=== PATIENT | male | born 1970 | race Caucasian/White ===

== ENCOUNTER 2021-07-10 14:27 | Emergency (ER) | payer OTHER ==
[~2021-07-10] VITALS: Ht 175.3 cm; Wt 74.8 kg
[2021-07-10 15:07] LABS: BASOPHILS ABSOLUTE AUTO 0.02 K/mm3 (0.00-0.23); BASOPHILS PERCENT AUTO 0 % (0-2); EOSINOPHILS PERCENT AUTO 0 % (0-6); Hematocrit 47.4 % (37.0-53.0); Hemoglobin 16.6 g/dL (13.5-17.5); IMMATURE GRAN ABSOLUTE AUTO 0.05 K/mm3 (0.00-0.10); IMMATURE GRAN PERCENT AUTO 0 % (0-1); LYMPHOCYTES ABSOLUTE AUTO 0.86 K/mm3 (0.84-5.20); LYMPHOCYTES PERCENT AUTO 7 % (21-46); MONOCYTES ABSOLUTE AUTO 1.09 K/mm3 (0.16-1.47); MONOCYTES PERCENT AUTO 9 % (4-13); Mean Corpuscular HGB 36.2 pg (26.0-34.0); Mean Corpuscular Volume 103 fL (80-100); NEUTROPHILS ABSOLUTE AUTO 9.99 K/mm3 (1.96-9.15); NEUTROPHILS PERCENT AUTO 83 % (41-73); Platelet Count 196 K/mm3 (150-400); RDW Coefficient Variation 13.2 % (11.7-14.2); RDW Standard Deviation 50.4 fL (35.1-46.3); Red Blood Cell Count 4.59 M/mm3 (4.30-5.90); White Blood Cell Count 12.01 K/mm3 (4.00-11.30)
[2021-07-10 15:37] LABS: Albumin, Blood 4.1 g/dL (3.4-5.0); Albumin/Globulin Ratio 0.9 (0.8-1.8); Bilirubin, Total 2.8 mg/dL (0.1-1.0); Bun/Creatinine Ratio 20.8 (12.0-20.0); Calcium, Blood 13.1 mg/dL (8.5-10.1); Creatinine, Blood 1.3 mg/dL (0.60-1.20); Globulin, Blood 4.4 g/dL (2.2-4.0); Potassium, Blood 3.7 mmol/L (3.5-5.5); Total Protein, Blood 8.5 g/dL (6.4-8.2)
[2021-07-10 16:40] LABS: Magnesium, Blood 1.9 mg/dL (1.6-2.4); Phosphorus, Blood 3.7 mg/dL (2.5-4.9)
[2021-07-10 17:11] LABS: Source, Urine Clean Catch
[2021-07-10 17:22] LABS: Appearance, Urine Cloudy (Clear); Blood, Urine 2+ (Neg); Color, Urine Amber (P-Yellow); Glucose Qualitative, Urine Neg (Neg); Ketones, Urine 3+ (Neg); Leukocyte Esterase, Urine 1+ (Neg); Nitrite, Urine Pos (Neg); Protein, Urine 3+ (Neg); Specific Gravity, Urine 1.025 (1.003-1.022); Urobilinogen, Urine 2+ (Normal)
[2021-07-10 17:38] LABS: Bilirubin, Urine 2+ (Neg)
[2021-07-10 17:43] LABS: Bacteria Many /hpf; Mucus Mod (0-Heavy); Squamous Epithelial Cells Few /hpf (Few)
[2021-07-10 17:44] LABS: Hyaline Casts 25-50 /lpf (0-2)
[2021-07-10] MEDS ORDERED: ASPI325EC PO (18:53)
[2021-07-10] MEDS ORDERED: ONDA4ODT MM (20:09)
[2021-07-10] MEDS ORDERED: CEFP200 PO (20:09)
[2021-07-10 20:53] LABS: Anion Gap 11 mmol/L (6-16); Blood Urea Nitrogen 26 mg/dL (8-24); Bun/Creatinine Ratio 26.2 (12.0-20.0); CO2, Blood 28 mmol/L (21-32); Chloride, Blood 98 mmol/L (98-108); Creatinine, Blood 0.99 mg/dL (0.60-1.20); Glomerular Filtration Rate >60 (60-); Glucose, Blood 116 mg/dL (70-99); Potassium, Blood 3.8 mmol/L (3.5-5.5); Sodium, Blood 137 mmol/L (136-145)
[2021-07-10 20:54] LABS: Calcium, Blood 10.9 mg/dL (8.5-10.1)
== END 2021-07-10 22:07 | disposition home or self-care (01) ==
LOC: ER 14:27
PROVIDERS: Physician Assistant
DX: E83.52 Hypercalcemia (principal); N39.0 Urinary tract infection, site not specified; E86.0 Dehydration; Z87.891 Personal history of nicotine dependence; Z20.822 Contact with and (suspected) exposure to COVID-19
CPT/HCPCS: 51798; 71046; 74177; 80048; 80053; 81001; 82330; 83605; 83690; 83735; 83970; 84100; 85025; 87086; 93005; 93010; 96365; 99284-25; A9270; J0696; J2405; J7030; Q9967

== ENCOUNTER → 2021-12-25 | Outpatient (CLI) | payer OTHER ==
[~2021-12-25] MED LIST: ASPI325EC PO; CEFP200 PO; ONDA4ODT MM
== END ==
LOC: LAB SHORT 07:21
DX: R21 Rash and other nonspecific skin eruption (principal)
CPT/HCPCS: 88312

== ENCOUNTER 2022-03-26 15:10 | Inpatient (IN) | payer OTHER ==
[~2022-03-26] VITALS: Ht 175.3 cm; Wt 75.7 kg
[2022-03-26] MEDS ORDERED: Prednisone10 MG PO (16:03)
[2022-03-26 16:58] LABS: BASOPHILS ABSOLUTE AUTO 0.02 K/mm3 (0.00-0.23); BASOPHILS PERCENT AUTO 0 % (0-2); EOSINOPHILS PERCENT AUTO 0 % (0-6); Hematocrit 33.8 % (37.0-53.0); Hemoglobin 12.5 g/dL (13.5-17.5); IMMATURE GRAN PERCENT AUTO 1 % (0-1); LYMPHOCYTES ABSOLUTE AUTO 1.33 K/mm3 (0.84-5.20); LYMPHOCYTES PERCENT AUTO 10 % (21-46); MONOCYTES ABSOLUTE AUTO 1.77 K/mm3 (0.16-1.47); MONOCYTES PERCENT AUTO 13 % (4-13); Mean Corpuscular Volume 95 fL (80-100); NEUTROPHILS PERCENT AUTO 76 % (41-73); NRBC ABSOLUTE 0.16 K/mm3 (0.00-0.02); NRBC Auto 1.2 /100 WBC (0.0-0.2); Platelet Count 252 K/mm3 (150-400); RDW Coefficient Variation 14.9 % (11.7-14.2); RDW Standard Deviation 50.6 fL (35.1-46.3); Red Blood Cell Count 3.57 M/mm3 (4.30-5.90); White Blood Cell Count 13.22 K/mm3 (4.00-11.30)
[2022-03-26 17:39] LABS: Albumin, Blood 3.1 g/dL (3.4-5.0); Albumin/Globulin Ratio 0.9 (0.8-1.8); Bilirubin, Total 2.6 mg/dL (0.1-1.0); Bun/Creatinine Ratio 12.7 (12.0-20.0); Creatinine, Blood 3.55 mg/dL (0.60-1.20); Globulin, Blood 3.4 g/dL (2.2-4.0); Total Protein, Blood 6.5 g/dL (6.4-8.2)
[2022-03-26 19:03] LABS: PCO2 Arterial 42.1 mmHg (35-45); PO2 Arterial 50.6 mmHg (80-100)
[2022-03-26 19:04] LABS: pH Blood Arterial 7.66 (7.35-7.45)
[2022-03-27 00:03] LABS: Bun/Creatinine Ratio 18.2 (12.0-20.0); Calcium, Blood 7.1 mg/dL (8.5-10.1); Creatinine, Blood 2.47 mg/dL (0.60-1.20); Potassium, Blood 2.1 mmol/L (3.5-5.5)
[2022-03-27 03:06] LABS: Source, Urine Clean Catch
[2022-03-27 03:37] LABS: Blood, Urine 2+ (Neg); Glucose Qualitative, Urine Neg (Neg); Ketones, Urine 1+ (Neg); Leukocyte Esterase, Urine 1+ (Neg); Nitrite, Urine Neg (Neg); Protein, Urine 2+ (Neg); Specific Gravity, Urine 1.015 (1.003-1.022); Urobilinogen, Urine 2+ (Normal)
[2022-03-27 04:00] LABS: Appearance, Urine Hazy (Clear); Bilirubin, Urine 1+ (Neg); Color, Urine Amber (P-Yellow)
[2022-03-27 04:01] LABS: Bacteria Not Seen /hpf; Squamous Epithelial Cells Mod /hpf (Few); White Blood Cells, Urine 0-2 /hpf (0-5)
[2022-03-27 04:46] LABS: Albumin, Blood 2.6 g/dL (3.4-5.0); Bun/Creatinine Ratio 20.8 (12.0-20.0); Calcium, Blood 6.9 mg/dL (8.5-10.1); Creatinine, Blood 1.97 mg/dL (0.60-1.20); Globulin, Blood 2.5 g/dL (2.2-4.0); Potassium, Blood 2.6 mmol/L (3.5-5.5); Total Protein, Blood 5.1 g/dL (6.4-8.2)
--- NOTE | 2022-03-27 06:22 | NUR ---
SHIFT SUMMARY Assumed care of patient at 2300. A/Ox2, self and situation. Patient unable to give me medical history at this time d/t confusion and drowsiness. Initial CIWA on the unit was 14, medicated per emar. CIWA's have ranged from 8-14. Maintains over 95% on RA-2L while sleeping. Patient snores, doesn't report sleep apnea but does desat into 70's while sleeping. SBP 80-90's, MAP remains in 70's. NS running at 200ml/hr. ST on tele low 100's, Prolonged QTc. Critical potassium this evening, hospitalist contacted and orders received. David inserted d/t retention and bladder scan more than 200mL, draining dark red/brown urine. Attends in place. Patient states last drink was earlier in the day at lunch time, although report given from significant other was that it was 4 days ago. L hip bruise noted, picture in chart. Patient unable to tell how it occurred. Will report to dayshift RN.
[2022-03-27 06:32] LABS: BASOPHILS ABSOLUTE AUTO 0.01 K/mm3 (0.00-0.23); BASOPHILS PERCENT AUTO 0 % (0-2); EOSINOPHILS PERCENT AUTO 0 % (0-6); Hematocrit 29.9 % (37.0-53.0); Hemoglobin 10.7 g/dL (13.5-17.5); IMMATURE GRAN ABSOLUTE AUTO 0.03 K/mm3 (0.00-0.10); IMMATURE GRAN PERCENT AUTO 0 % (0-1); LYMPHOCYTES ABSOLUTE AUTO 0.62 K/mm3 (0.84-5.20); LYMPHOCYTES PERCENT AUTO 7 % (21-46); MONOCYTES ABSOLUTE AUTO 0.73 K/mm3 (0.16-1.47); MONOCYTES PERCENT AUTO 8 % (4-13); Mean Corpuscular HGB 34.7 pg (26.0-34.0); Mean Corpuscular HGB Conc 35.8 g/dL (31.5-36.5); Mean Corpuscular Volume 97 fL (80-100); NEUTROPHILS ABSOLUTE AUTO 7.56 K/mm3 (1.96-9.15); NEUTROPHILS PERCENT AUTO 85 % (41-73); NRBC ABSOLUTE 0.04 K/mm3 (0.00-0.02); NRBC Auto 0.4 /100 WBC (0.0-0.2); Platelet Count 185 K/mm3 (150-400); RDW Coefficient Variation 14.7 % (11.7-14.2); RDW Standard Deviation 49.8 fL (35.1-46.3); Red Blood Cell Count 3.08 M/mm3 (4.30-5.90); White Blood Cell Count 8.95 K/mm3 (4.00-11.30)
[2022-03-27 08:40] LABS: Base Excess Venous 17.6 mmol/L; Bicarbonate Venous 40.2 mmol/L (24.0-30.0); PCO2 Venous 40.6 mmHg (38-42); PO2 Venous 172 mmHg (38-42); pH Blood Venous 7.59 (7.34-7.37)
[2022-03-27 09:01] LABS: Albumin, Blood 2.4 g/dL (3.4-5.0); Albumin/Globulin Ratio 0.9 (0.8-1.8); Bilirubin, Indirect 0.9 mg/dL (0.1-0.7); Bilirubin, Total 1.9 mg/dL (0.1-1.0); Bun/Creatinine Ratio 24.5 (12.0-20.0); Calcium, Blood 6.7 mg/dL (8.5-10.1); Creatinine, Blood 1.39 mg/dL (0.60-1.20); Globulin, Blood 2.7 g/dL (2.2-4.0); Potassium, Blood 2.7 mmol/L (3.5-5.5); Total Protein, Blood 5.1 g/dL (6.4-8.2)
[2022-03-27 17:17] LABS: Bun/Creatinine Ratio 31.7 (12.0-20.0); Creatinine, Blood 1.04 mg/dL (0.60-1.20)
--- NOTE | 2022-03-27 18:21 | NUR ---
ASSUMED CARE OF PT AT 0700 TODAY. NO ACTUE EVENTS T/O THE SHIFT. LABS APPEAR TO BE SLOWLY IMPROVING AND PT HAS BECOME MORE ALERT AND ORIENTED OVER THE COURSE OF THE DAY. AT BEDSIDE TO VISIT. PT HAS HAD NO COMPLAINTS, NO NAUSEA OR VOMITING. ADEQUATE URINE OUTPUT, TEA COLORED URINE NOTED TO MOSS DRAINAGE BAG. VSS. NO ATIVIAN/LIBRIUM REQUIRED ON MY SHIFT. PT USES CALL LIGHT APPROPRIATELY, CALL LIGHT IN REACH, WILL CONTINUE TO MONITOR AND GIVE REPORT TO NOC SHIFT RN.
[2022-03-27 19:44] LABS: Bun/Creatinine Ratio 34.2 (12.0-20.0); Calcium, Blood 7.9 mg/dL (8.5-10.1); Creatinine, Blood 0.85 mg/dL (0.60-1.20); Potassium, Blood 2.8 mmol/L (3.5-5.5)
[2022-03-27 21:21] LABS: Base Excess Venous 14.4 mmol/L; Bicarbonate Venous 36.8 mmol/L (24.0-30.0)
[2022-03-28 04:09] LABS: BASOPHILS PERCENT AUTO 0 % (0-2); EOSINOPHILS PERCENT AUTO 0 % (0-6); Hematocrit 27.4 % (37.0-53.0); Hemoglobin 9.7 g/dL (13.5-17.5); IMMATURE GRAN ABSOLUTE AUTO 0.07 K/mm3 (0.00-0.10); IMMATURE GRAN PERCENT AUTO 1 % (0-1); LYMPHOCYTES ABSOLUTE AUTO 1.13 K/mm3 (0.84-5.20); LYMPHOCYTES PERCENT AUTO 14 % (21-46); MONOCYTES ABSOLUTE AUTO 0.71 K/mm3 (0.16-1.47); MONOCYTES PERCENT AUTO 9 % (4-13); Mean Corpuscular HGB Conc 35.4 g/dL (31.5-36.5); Mean Corpuscular Volume 99 fL (80-100); NEUTROPHILS ABSOLUTE AUTO 5.95 K/mm3 (1.96-9.15); NEUTROPHILS PERCENT AUTO 76 % (41-73); NRBC ABSOLUTE 0.05 K/mm3 (0.00-0.02); NRBC Auto 0.6 /100 WBC (0.0-0.2); Platelet Count 179 K/mm3 (150-400); RDW Coefficient Variation 14.4 % (11.7-14.2); RDW Standard Deviation 51.1 fL (35.1-46.3); Red Blood Cell Count 2.77 M/mm3 (4.30-5.90); White Blood Cell Count 7.86 K/mm3 (4.00-11.30)
[2022-03-28 04:39] LABS: Albumin, Blood 2.4 g/dL (3.4-5.0); Albumin/Globulin Ratio 0.9 (0.8-1.8); Bilirubin, Total 2.2 mg/dL (0.1-1.0); Bun/Creatinine Ratio 28.7 (12.0-20.0); Calcium, Blood 7.3 mg/dL (8.5-10.1); Creatinine, Blood 0.7 mg/dL (0.60-1.20); Globulin, Blood 2.6 g/dL (2.2-4.0); Potassium, Blood 2.7 mmol/L (3.5-5.5)
--- NOTE | 2022-03-28 06:31 | NUR ---
SHIFT SUMMARY A/Ox4, with periods of confusion especially after waking up from sleeping. CIWA's ranging from 4-5. Maintains over 95% on RA-2L while sleeping. Patient snores, doesn't report sleep apnea but does desat into 70's while sleeping.VSS. NS running at 200ml/hr. SR on tele low 100's, QTc improved. Potassium IV orders this evening. David draining flor urine. No acute changes. Will report to daystasha DANIEL.
[2022-03-28 15:20] LABS: Albumin, Blood 2.4 g/dL (3.4-5.0); Albumin/Globulin Ratio 0.9 (0.8-1.8); Bilirubin, Total 1.6 mg/dL (0.1-1.0); Bun/Creatinine Ratio 23.9 (12.0-20.0); Calcium, Blood 7.3 mg/dL (8.5-10.1); Creatinine, Blood 0.59 mg/dL (0.60-1.20); Globulin, Blood 2.7 g/dL (2.2-4.0); Potassium, Blood 3.3 mmol/L (3.5-5.5); Total Protein, Blood 5.1 g/dL (6.4-8.2)
--- NOTE | 2022-03-28 15:21 | NUR ---
Spiritual care visit conducted. Pt is admits immediately that he is confused. He repeats himself often and believes that I am a doctor even with repated reminders of my role. Pt talks about the frustration he feels about not being able to do anything because of mobility issues and mental fog. He tells me about his positive family support and [employer] satinder. Pt's spouse, Rhonda, enter's rm and explains about the alcohol issues that are at the heart of his medical conditions. Pt, then, is more honest about his struggle but maintains that he has quit before and he can do it again. I reinforce helpful attitudes and practices, and provide therapeutic listening, gentle preparole counseling aide and prayer. Pt responds well and shows signs of a stronger resolve. I will continue to remain availble to patient and family.
--- NOTE | 2022-03-28 18:36 | NUR ---
NO ACUTE EVENTS T/O THE SHIFT. POTASSIUM REPLACED PER MD SOSA AND LABS DRAWN. PT WORKED WITH PT/OT AND WAS ABLE TO SIT IN A CHAIR AT BEDSIDE FOR A WHILE TODAY. PT'S AT BEDSIDE AND UPDATED. PT MEDICATED WITH LIBRIUM X 1 FOR TREMORS AND CONFUSION, APPEARED TO BE EFFECTIVE, PT RESTING COMFORTABLY AFTER DOSE. NO FURTHER NEEDS IDENTIFIED AT THIS TIME, CALL LIGHT IN REACH, WILL CONTINUE TO MONITOR AND GIVE REPORT TO NOC SHIFT RN.
[2022-03-29 03:50] LABS: BASOPHILS ABSOLUTE AUTO 0.02 K/mm3 (0.00-0.23); BASOPHILS PERCENT AUTO 0 % (0-2); EOSINOPHILS ABSOLUTE AUTO 0.11 K/mm3 (0.00-0.68); EOSINOPHILS PERCENT AUTO 1 % (0-6); Hemoglobin 9.9 g/dL (13.5-17.5); IMMATURE GRAN ABSOLUTE AUTO 0.11 K/mm3 (0.00-0.10); IMMATURE GRAN PERCENT AUTO 1 % (0-1); LYMPHOCYTES ABSOLUTE AUTO 1.29 K/mm3 (0.84-5.20); LYMPHOCYTES PERCENT AUTO 17 % (21-46); MONOCYTES ABSOLUTE AUTO 0.91 K/mm3 (0.16-1.47); MONOCYTES PERCENT AUTO 12 % (4-13); Mean Corpuscular HGB 34.4 pg (26.0-34.0); Mean Corpuscular HGB Conc 34.1 g/dL (31.5-36.5); Mean Corpuscular Volume 101 fL (80-100); Mean Platelet Volume 10.9 fL (9.1-12.4); NEUTROPHILS PERCENT AUTO 68 % (41-73); NRBC ABSOLUTE 0.06 K/mm3 (0.00-0.02); NRBC Auto 0.8 /100 WBC (0.0-0.2); Platelet Count 208 K/mm3 (150-400); RDW Coefficient Variation 14.6 % (11.7-14.2); RDW Standard Deviation 52.5 fL (35.1-46.3); Red Blood Cell Count 2.88 M/mm3 (4.30-5.90); White Blood Cell Count 7.74 K/mm3 (4.00-11.30)
[2022-03-29 04:09] LABS: Albumin, Blood 2.2 g/dL (3.4-5.0); Albumin/Globulin Ratio 0.9 (0.8-1.8); Bilirubin, Total 1.4 mg/dL (0.1-1.0); Bun/Creatinine Ratio 16.1 (12.0-20.0); Calcium, Blood 7.1 mg/dL (8.5-10.1); Creatinine, Blood 0.56 mg/dL (0.60-1.20); Globulin, Blood 2.4 g/dL (2.2-4.0); Potassium, Blood 3.5 mmol/L (3.5-5.5); Total Protein, Blood 4.6 g/dL (6.4-8.2)
--- NOTE | 2022-03-29 05:48 | NUR ---
SHIFT SUMMARY ASSUMED CARE OF PT AROUND 0300. PT IS A/OX3. PT WAKE AND SATURATIONS AT 95% ON RA. PT HAD NO NEW COMPLAINTS. GRATFUL OF CARE GIVEN AT HOSPITAL. NO ACUTE CHANGES.
[2022-03-29 12:29] LABS: Bun/Creatinine Ratio 15.1 (12.0-20.0); Calcium, Blood 7.5 mg/dL (8.5-10.1); Creatinine, Blood 0.6 mg/dL (0.60-1.20); Potassium, Blood 3.8 mmol/L (3.5-5.5)
--- NOTE | 2022-03-29 13:51 | NUR ---
PT ASKED IF A DOCTOR COULD DISCUSS ACLOHOL WITHDRAWL PROGRAMS WITH THE PT. PT STATED "HE SAYS THAT HE WANTS HELP BUT DOES NOT WANT TO HEAR ANYTHING ON IT FROM ME. I THINK IT IS BECAUSE I AM HIS ." THIS RN INFORMED PT THAT RN'S CAN TALK WITH THE PT ABOUT IT, BUT PT EXPRESSED THAT THE PT WOULD LISTEN MORE EFFECTIVLEY IF IT CAME FROM A DOCTOR. THIS RN WILL FORWARD TO DOCTOR.
[2022-03-29] MEDS ORDERED: GABA300 PO (14:52)
--- NOTE | 2022-03-29 15:01 | NUR ---
UPDATE THIS RN ENTERED PT ROOM 1455. PT ASKED IF HE COULD RETURN TO HIS BED STATING "MY TAILBONE HURTS AND I WOULD LIKE TO GET BACK INTO BED." PT WAS ATTEMPTING TO SIT AT EDGE OF BED, PT BECAME WEAK AND FLOPPED ONTO EDGE OF BED. THIS RN ASKED IF PT WAS LIGHTHEADED OR DIZZY, PT RESPONDED WITH "NO MY DAMN KNEES JUST GAVE OUT." AFTER SITTING ON EDGE OF BED FOR A MOMENT, PT WAS ABLE TO USE HIS ARMS TO LIFT HIPS AND SLIDE BACK FURTHER INTO BED. PT THEN ABLE TO LIE BACK AND LIFT LEGS INTO BED WITHOUT ASSISTANCE.
--- NOTE | 2022-03-29 16:09 | NUR ---
DISCHARGE UPDATE DISCHARGE PACKET GONE OVER WITH PT AND PT AT 1555. PT BELONGINGS IN BAGS AND WITH PT FOR DISCHARGE. DISCHARGE PACKET IN BAGS WITH PT.
== END 2022-03-29 16:25 | disposition home health service (06) | DRG 896 ==
LOC: ER 15:10 → PCU 19:12 → ERHOLD 19:12 → PCU 21:08
PROVIDERS: Family Medicine; Hospitalist; Student in an Organized Health Care Education/Training Program; ADMIT Internal Medicine
PROC: HZ2ZZZZ Detoxification Services for Substance Abuse Treatment (ICD-10-PCS; principal; 2022-03-26)
DX: F10.239 Alcohol dependence with withdrawal, unspecified (principal); G93.41 Metabolic encephalopathy; E87.2 Acidosis; N17.9 Acute kidney failure, unspecified; E46 Unspecified protein-calorie malnutrition; R44.3 Hallucinations, unspecified; E87.3 Alkalosis; E87.1 Hypo-osmolality and hyponatremia; L40.50 Arthropathic psoriasis, unspecified; E87.6 Hypokalemia; E86.0 Dehydration; D64.9 Anemia, unspecified; E87.8 Other disorders of electrolyte and fluid balance, not elsewhere classified; R73.9 Hyperglycemia, unspecified; Z68.25 Body mass index [BMI] 25.0-25.9, adult; Z91.030 Bee allergy status; Z79.82 Long term (current) use of aspirin; Z79.52 Long term (current) use of systemic steroids
CPT/HCPCS: 36415; 36600; 51703; 70450; 71045; 80048; 80053; 80076; 81001; 82140; 82330; 82803; 82947; 83605; 83690; 83735; 85025; 87040; 87086; 93005; 93010; 96365; 96366; 96368; 96375; 97110; 97116; 97161; 97165; 97530; 97535; 99285-25; A9270; J0610; J1650; J1720; J2405; J3370; J3411; J3475; J3480; J7030; J7060; J7120

== ENCOUNTER → 2022-05-06 | Outpatient (CLI) | payer OTHER ==
[~2022-05-06] MED LIST changes: +GABA300 PO; +Prednisone10 MG PO
== END | disposition home or self-care (01) ==
LOC: LAB 18:13 → LAB SHORT 18:13 → LAB FUT 05-06 15:45
DX: N30.01 Acute cystitis with hematuria (principal)
CPT/HCPCS: 87086